=== PATIENT | male | born 1955 | race African-American/Black ===

== ENCOUNTER 2019-03-23 13:34 | Inpatient (IN) ==
[2019-03-23] MEDS ORDERED: TYLENOL PO ONE (13:43)
--- NOTE | 2019-03-23 14:08 | Diag Imaging Result Doc PS360 ---
EXAM: CHEST-2 VIEWS 03/23/2019 HISTORY: fever cough weakness TECHNIQUE: PA and lateral chest COMMENT: There is ill-defined opacity in the posterior medial right lower lobe which was not present on 06/18/2018. There is apparent COPD. IMPRESSION: Right lower lobe pneumonia. Electronically signed by Harvey Larson 03/23/2019 2:06 PM
[2019-03-23 14:09] LABS: BASO# 0.02 X1000 (0.0-0.2); BASO% 0.2 % (0.0-0.8); HEMATOCRIT 38.9 % (42.0-52.0); HEMOGLOBIN 13.2 g/dL (14.0-18.0); IMM GRAN# 0.07 X1000 (0.0-0.04); IMM GRAN% 0.6 % (0.0-0.5); LYMPH# 1.22 X1000 (1.2-3.4); LYMPH% 10.4 % (20.5-51.1); MCH 27.1 PG (27-31); MCHC 33.9 g/dL (33-37); MCV 79.9 FL (81-99); MONO# 1.53 X1000 (0.11-0.59); MONO% 13.1 % (1.7-9.3); NEUT# 8.86 X1000 (1.4-6.5); NEUT% 75.7 % (42.2-75.2); PLT 263 X1000 (130-400); RBC 4.87 XMIL (4.7-6.1); RDW 13.7 % (11.5-14.5)
--- NOTE | 2019-03-23 14:15 | Diag Imaging Result Doc PS360 ---
EXAM: CT HEAD W/O CONTRAST 03/23/2019 HISTORY: weakness hx cva TECHNIQUE: This exam was performed using automated exposure control, adjustment of mA or kV according to patient size, and/or use of iterative reconstruction technique. COMMENT: There is encephalomalacia in the left hemisphere in the parietal convexity and occipital lobe as well as some dystrophic calcification along the atrium of the left lateral ventricle. There are patchy lucencies in the periventricular white matter generally including the right centrum semiovale ovale and subcortical white matter. There are no previous studies available for comparison. The visualized paranasal sinuses are clear. 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 There has been left parietal craniotomy. IMPRESSION: Chronic ischemic and postsurgical changes. No definite evidence of acute disease. Electronically signed by Harvey Larson 03/23/2019 2:13 PM
[2019-03-23] MEDS ORDERED: ROCEPHIN 1 GM in NS 50 ML IV ONE (14:52)
[2019-03-23 15:06] LABS: ALBUMIN 3.9 g/dL (3.5-5.0); CALCIUM 8.8 mg/dL (8.8-10.2); CREATININE 2.5 mg/dL (0.7-1.2); POTASSIUM 3.8 mmol/L (3.5-5.1); TOTAL BILIRUBIN 0.5 mg/dL (0.20-1.00); TOTAL PROTEIN 7.1 g/dL (6.3-8.3)
[2019-03-23 15:31] LABS: BILIRUBIN URINE NEGATIVE (NEGATIVE); BLOOD URINE 3+ (NEGATIVE); KETONE URINE NEGATIVE (NEGATIVE); LEUKOCYTES URINE NEGATIVE (NEGATIVE); NITRITE URINE NEGATIVE (NEGATIVE); PROTEIN URINE 2+(100 mg/dL) mg/dL (NEGATIVE); UROBILINOGEN URINE NORMAL
[2019-03-23 15:32] LABS: CLARITY SL. CLOUDY (CLEAR); COLOR YELLOW
[2019-03-23 15:33] LABS: URINE SOURCE CLEAN CATCH
[2019-03-23] MEDS ORDERED: TYLENOL PO PRN (15:33)
[2019-03-23] MEDS ORDERED: NS 1,000 ML IV ONE (15:38)
[2019-03-23] MEDS ORDERED: APRESOLINE IV PRN (15:39)
[2019-03-23] MEDS: NS 1,000 ML IV SCH (16:35)
[2019-03-23] MEDS: ZITHROMAX 500 MG/NS 500 MG/250 ML IVPB IV SCH (16:35)
[2019-03-23] MEDS: NICODERM PATCH TD SCH (16:35)
--- NOTE | 2019-03-23 18:10 | HISTORY AND PHYSICAL ---
PRIMARY CARE PHYSICIAN: None. CHIEF COMPLAINT: Weakness. HISTORY OF PRESENT ILLNESS: Mr. 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 The patient presented to the ER today, states that he has been very weak and unsteady on his feet, and today he actually fell at home. is at the bedside. She states that the patient has also had decreased appetite for the past few days. The patient is lying in the ER stretcher. He is in no acute distress at the present time. He is able to answer some of my questions appropriately, but the patient seems confused. Family states that, after his CVA 2 years ago, he has had some mild dementia and does have some intermittent confusion. The patient is able to tell me who he is, the month and the day of his birthday, but keeps repeating back the month when I ask him the year of his birthday. The patient is able to move all extremities and has significant strength noted. The patient is very thin in appearance. Fontanelles are sunken. states that usually the patient eats very well; however, over the past few days, he has not been eating very much. Laboratory Findings show white blood cell count 11.70, a sodium of 138, BUN of 137, and a creatinine of 2.5. Chest x-ray shows right lower lobe pneumonia. CT of the head shows chronic ischemic and postsurgical changes, no evidence of acute disease. The patient is denying any pain at this time. He states he does not have a headache. He did not complain of any dizziness. He does complain of a fever, and upon admission to the ER, he had a temperature of 100.8 degrees. The patient states he has had some chills. Denies any dysuria, hematuria, urgency, or frequency. Denies any constipation or diarrhea. The patient states that he is able to take his medications as prescribed and has been taking them. He is not having difficulty swallowing. He does have some peripheral vision loss from his stroke 2 years ago. PAST MEDICAL HISTORY: CVA 2 years ago from embolism, a skull fracture where he hit a shelf and this was 30 years ago, hypertension, GERD, iron deficiency anemia. PAST SURGICAL HISTORY: Surgery to his head from a skull fracture 30 years ago, leg surgery. FAMILY HISTORY: Significant of cancer. SOCIAL HISTORY: Patient lives in [place] with his . states that he does smoke cigars and cigarettes routinely. She does not know quite how much he smokes. states he also does drink alcohol pretty frequently. The patient is unable to answer these questions. states that the patient did use to smoke crack cocaine. She is not sure when the last time was that he smoked this. Subsequently, this is what the stated caused his stroke several years ago. ALLERGIES: No known drug allergies. MEDICATIONS: Amlodipine besylate 10 mg p.o. daily. Vitamin C 500 mg p.o. daily. Clonidine 0.2 mg p.o. daily. Famotidine 20 mg p.o. daily. Folic acid. Multivitamin with iron 1 tablet p.o. daily. Hydrochlorothiazide 25 mg p.o. daily. Iron polysaccharide complex 200 mg p.o. daily. DIAGNOSTIC STUDIES: White blood cell count 11.70, red blood cell count 4.87, hemoglobin 13.2, hematocrit 38.9, MCV 79.9, platelet count 263,000. Sodium is 130, potassium is 3.8, chloride 98, carbon dioxide 24, anion gap is 16, BUN is 37, creatinine is 2.5, GFR is 26, glucose is 126, calcium is 8.8, total bilirubin is 0.5, AST is 70, ALT is 36, alkaline phosphatase 71. Plasma lactate is 1.3. Urinalysis shows 2+ protein, 3+ blood, trace glucose. Chest x-ray shows right lower lobe pneumonia and COPD. Head CT shows chronic ischemic and postsurgical changes. No definite evidence of acute disease. REVIEW OF SYSTEMS: A 10 point review of systems has been obtained. All are negative except what is stated above in HPI. PHYSICAL EXAMINATION: VITAL SIGNS: Temperature 98.3 degrees and initially on arrival to the ER that was 100.8, pulse rate 66, respiratory rate 20, blood pressure is 97/69, O2 saturation is 99% on room air. HEIGHT/WEIGHT: Weight is 124 pounds 8 ounces. Height is 5 feet 11 inches. GENERAL: This is a 63-year-old male. He is lying in the ER stretcher. He is in no acute distress. He is very thin and frail in appearance. He has full strength noted. Fontanelles are sunken. HEENT: Atraumatic, normocephalic. Pupils are equal, round, and reactive to light. There is peripheral field vision loss noted. Mucous membranes are dry. NECK: Supple. No lymphadenopathy. Trachea is midline. No JVD. No thyromegaly. No bruits. CARDIOVASCULAR: Regular rate and rhythm. No murmurs, gallops, or rubs appreciated. RESPIRATORY: Lung sounds are clear with equal chest excursion. Respirations are nonlabored with no accessory muscle usage. GASTROINTESTINAL: Abdomen is flat. It is nontender and nondistended. Bowel sounds are present x4. NEUROLOGIC: The patient is awake and alert. He is able answer a few of my questions; however, he is confused and does not remember his full birthday or where he is or what is going on. He has full strength noted and able to follow all commands. MUSCULOSKELETAL: Full distal strength. The patient is able to follow my commands. There are no abnormalities or deformities. EXTREMITIES: There is no clubbing, no cyanosis. No edema noted. DP and PT pulses are present and palpable. SKIN: Warm, dry, and intact. There are no rashes, bruises or diaphoresis. ASSESSMENT AND PLAN: 1. Pneumonia. We are admitting this patient to the medical floor. We are going to start him on IV antibiotics for his pneumonia. We are going to give him IV fluid hydration. Restart some of his home medications. Provide him with a heart healthy diet. I consulted Physical Therapy to help with ambulation as patient has had some weakness and fell at home. 2. Dehydration. Started this patient on IV fluid hydration of normal saline. We are going to repeat labs in the morning. 3. Acute kidney injury. The patient has elevated creatinine of 2.5 and a BUN of 37. His GFR is 26. When I looked back at a year ago, his creatinine was 1.4, his BUN was 18, and his GFR was greater than 60, so this seems to be an acute event for him. We are going to provide him with some IV fluid hydration. We are going to recheck his labs in the morning to see if we can get some improvement after IV fluid hydration. 4. Hypertension. The patient is on several medications at home for his blood pressure. Right now, his blood pressure is on the low side. This is possibly due to his infection. Blood pressure is 97/69. I have restarted one of his hypertension medicines to be given in the morning. We will hold this if his systolic blood pressure is less than 110. 5. Weakness with fall at home. The patient did have an actual fall at home. states that this is new for him. He did have a stroke over 2 years ago, but he has been able to get around at home, so we have consulted Physical Therapy to help with strengthening. 6. Tobacco abuse: I gave him a nicotine patch and provided smoking cessation information. 7. Alcohol abuse. Not for sure if he does this daily. stated that he is a heavy drinker, but he does not seem to drink daily. We will watch him for withdrawal symptoms, and I am obtaining some labs in the morning. 8. Deep venous thrombosis prophylaxis. I have ordered SCD's. 9. Gastrointestinal prophylaxis. The patient is on Pepcid daily at home. I have reordered this medication. All other further recommendations pending hospital course and lab data. Dictated by ELLEN Olivarez for Pool Moore MD cc: Pool Moore MD MTDD
--- NOTE | 2019-03-23 19:47 | HISTORY AND PHYSICAL ---
ADDENDUM: Patient seen and examined by myself. Full note dictated and discussed with nurse practitioner. The patient presented to the hospital having a febrile illness of undetermined origin. He denies any cough or congestion. Denies headaches. Denies any fevers prior to getting to the ER today. Denies any dysuria. No frequency. Denies constipation, melena or hematochezia. Denies any skin rashes. The patient apparently had a fall at home that was unwitnessed. Head CT was negative. He does have chronic ischemic changes. He does drink, although he states he does not drink every day. Creatinine is elevated at 2.5. His baseline appears to be around 1.4. We are going to admit him to the hospital, place him on antibiotics. Blood culture, urine culture. IV fluids, and recheck his kidney function. cc: Pool Moore MD
[2019-03-23] MEDS ORDERED: HEPARIN SUBQ SCH (21:00)
[2019-03-24] MEDS: NS 1,000 ML IV SCH ×3 (03:07→17:48)
--- NOTE | 2019-03-24 06:52 | Diag Imaging Result Doc PS360 ---
EXAM: CHEST-PORTABLE 03/24/2019 HISTORY: Pneumonia TECHNIQUE: AP portable at 0638 COMMENT: There is opacity in the medial right lower lobe. This is slightly less extensive than on the previous study of 03/23/2019, however the inspiration is less optimal. IMPRESSION: Right lower lobe pneumonia. Electronically signed by Harvey Larson 03/24/2019 6:50 AM
[2019-03-24 06:59] LABS: BASO# 0.02 X1000 (0.0-0.2); BASO% 0.3 % (0.0-0.8); EOS# 0.05 X1000 (0.0-0.7); EOS% 0.6 % (0.0-10.0); HEMATOCRIT 37.2 % (42.0-52.0); HEMOGLOBIN 12.6 g/dL (14.0-18.0); IMM GRAN# 0.03 X1000 (0.0-0.04); IMM GRAN% 0.4 % (0.0-0.5); LYMPH# 0.72 X1000 (1.2-3.4); LYMPH% 9.2 % (20.5-51.1); MCH 27.2 PG (27-31); MCHC 33.9 g/dL (33-37); MCV 80.3 FL (81-99); MONO# 1.03 X1000 (0.11-0.59); MONO% 13.1 % (1.7-9.3); MPV 10.4 FL (7.4-10.4); NEUT# 6.01 X1000 (1.4-6.5); NEUT% 76.4 % (42.2-75.2); PLT 266 X1000 (130-400); RBC 4.63 XMIL (4.7-6.1); RDW 13.8 % (11.5-14.5); WBC 7.86 X1000 (4.8-10.8)
[2019-03-24 07:26] LABS: CALCIUM 8.3 mg/dL (8.8-10.2); POTASSIUM 3.4 mmol/L (3.5-5.1)
[2019-03-24 07:35] LABS: CHOLESTEROL 123 mg/dL (0-200); HDL 41 mg/dL (35-55); LDL 56 mg/dL; PHOSPHORUS 2.9 mg/dL (2.7-4.5); TRIGLYCERIDES 129 mg/dL (39-160); VLDL 26 mg/dL
[2019-03-24 07:53] LABS: TSH 1.2 uIUmL (0.27-4.20)
[2019-03-24] MEDS ORDERED: NORVASC PO SCH (09:00)
[2019-03-24] MEDS: NICODERM PATCH TD SCH (09:33)
[2019-03-24] MEDS: NORVASC PO SCH (09:35)
[2019-03-24] MEDS: FERROUS SULFATE PO SCH (09:35)
[2019-03-24] MEDS: PEPCID PO SCH (09:35)
[2019-03-24] MEDS: THERA M PLUS PO SCH (09:36)
[2019-03-24] MEDS: VITAMIN C PO SCH (09:36)
--- NOTE | 2019-03-24 13:42 | PROGRESS NOTE ---
DATE: 03/24/2019 Delete cc: Pool Moore MD MTDD
--- NOTE | 2019-03-24 13:50 | PROGRESS NOTE ---
DATE: 03/24/2019 SUBJECTIVE: Patient notes he is feeling a lot better. He denies any cough or congestion. He has not really been out of bed. He has had no other lightheaded episodes. Denies any alcohol withdrawal. States his cough is improving and still nonproductive. OBJECTIVE: Temperature 98, pulse 68, respiratory rate 22, BP 121/70. General: The patient is awake, alert, currently in no respiratory distress. Very pleasant. HEENT: Normocephalic. Neck: Supple. Cardiovascular: Regular rate. Chest: Clear. Abdomen: Soft. Extremities: Moves all extremities. Neurologic: No changes. ASSESSMENT: 1. Hyponatremia. 2. Acute on chronic renal failure. Creatinine is improving. It is down from 2.5 to 2.0. He is not quite back to his baseline. We are going to continue his intravenous bag and then hopefully saline lock after that. 3. Volume depletion, improved. 4. Syncope, likely secondary to both pneumonia and volume depletion. He has had no further episodes. 5. Hypertension. Blood pressure is stable. PLAN: We will continue patient in the hospital. Continue treatment. We will monitor for withdrawal. Hopefully, he can discharge home over the next day or two. cc: Pool Moore MD [facility]
--- NOTE | 2019-03-24 14:19 | PROVIDER DOCUMENTATION ---
This chart was entered by Len Schaffer Scribe, acting as scribe for William Khan MD. HPI-General Adult - General Chief Complaint: General Adult Stated Complaint: FEVER Time Seen by Provider: 03/23/19 14:39 Source: patient, family Allergies/Adverse Reactions: Patient Allergies Allergy/AdvReac Type Severity Reaction Status Date / Time No Known Allergies Allergy Verified 03/23/19 14:17 Home Medications: Home Medication List Medication Instructions Recorded Confirmed Last Taken Type Amlodipine Besylate 10 mg PO DAILY 03/23/19 03/23/19 Unknown History Ascorbate Calcium [Vitamin C] 500 mg PO DAILY 03/23/19 03/23/19 Unknown History Clonidine HCl 0.2 mg PO DAILY 03/23/19 03/23/19 Unknown History Famotidine 20 mg PO DAILY 03/23/19 03/23/19 Unknown History Folic Acid/Mv,Fe,Min [One Daily 1 tab PO DAILY 03/23/19 03/23/19 Unknown History Complete Tablet] Hydrochlorothiazide 25 mg PO DAILY 03/23/19 03/23/19 Unknown History Iron Polysaccharide Complex [Ezfe 200 mg PO DAILY 03/23/19 03/23/19 Unknown History 200] - History of Present Illness -Gen Adult Nature of Presenting Problems: 63 yom presents to the ed with a fall that happened this morning, pts family member stated pt fell this morning when going to the bathroom and knocked down the shower curtain, while pts family member was out of the house. after fall pts family member stated he stayed in bed after fall. pt pts family member stated he has loss of appetite. pt states he "has a cough but its not that bad". pt had a stroke 2 years ago and family member states he had a blood clot on his brain , family member says " blood clot is suppose to dissolve " pt is a fluid drinker and smoker stated by family member. Location of Pain/Injury: reports: abdomen (tenderness) Pain Radiation: reports: no radiation Quality of Pain: reports: none Severity: reports: mild Onset/Duration: reports: this morning Timing: reports: still present Context/Activities at Onset: reports: light activity Modifying Factors: improves with: nothing Associated Symptoms: reports: cough (pt says its not that bad). denies: diarrhea, nausea, vomiting Similar Symptoms Previously?: No Recently seen or treated by another doctor?: No Review of Systems - Adult - REVIEW OF SYSTEMS - ADULT Constitutional: reports: weight loss (temporal denotation). denies: chills, fever Eyes: reports: no symptoms reported Ears, Nose, Mouth & Throat: reports: no symptoms reported Cardiovascular: reports: no symptoms reported Respiratory: reports: see HPI, cough. denies: shortness of breath, wheezing Gastrointestinal: denies: diarrhea, nausea, vomiting Genitourinary: reports: no symptoms reported Musculoskeletal: reports: no symptoms reported Integumentary: reports: no symptoms reported Neurological: reports: see HPI, loss of balance (fell this morning). denies: s eizure, syncope Psychiatric: reports: no symptoms reported Endocrine: reports: no symptoms reported Hematologic/Lymphatic: reports: no symptoms reported Allergic/Immunologic: reports: no symptoms reported All Other Systems: Reviewed and Negative Past History - Adult - PAST MEDICAL HISTORY-ADULT Review of Records: reports: Old Records Reviewed, Nursing Assessment Review, Medications Reviewed, Social history reviewed & non-contributory. Major Childhood Illnesses: reports: denies history Cardiovascular: reports: HTN Respiratory: reports: denies history Gastrointestinal: reports: denies history Obstetrical/Gynecological: reports: denies history Genitourinary: reports: denies history Musculoskeletal: reports: denies history Neurological: reports: denies history Endocrine/Immune: reports: denies history Other Conditions: reports: denies history - IMMUNIZATION STATUS Childhood Immunizations: See Nurse Assessment Flu Vaccine: See Nurse Assessment - FAMILY HISTORY Family History: reviewed, not pertinent - SOCIAL HISTORY Smoking: cigarettes Substance Use: alcohol Living Situation: family Physical Exam-General - PHYSICAL EXAM-ADULT Initial Vital Signs Reviewed: Yes - CONSTITUTIONAL General Appearance: alert, no apparent distress, thin - EYES Eyes: PERRL/EOMI, pink conjunctivae - HEAD, EARS, NOSE, MOUTH & THROAT HENMT: moist mucous membranes, dental decay, other (temporal wasting) - NECK Neck: non-tender, full range of motion - RESPIRATORY Respiratory: chest non-tender, lungs clear, normal breath sounds - CARDIOVASCULAR Cardiovascular: normal peripheral pulses, regular rate, rhythm - GASTROINTESTINAL (ABDOMEN) Abdominal Exam: normal bowel sounds, tenderness - LYMPHATIC Lymphatic: no adenopathy - MUSCULOSKELETAL Back Exam: normal inspection, no CVA tenderness Extremity: normal range of motion, non-tender, normal gait - SKIN Integumentary: normal color, normal turgor, warm/dry - NEUROLOGIC Neurologic: grossly normal - PSYCHIATRIC Psych/Mental Status: normal mood/affect, normal thought content, normal thought process, oriented x 3 Progress - PLAN OF CARE/RESULTS Progress/Plan/Lab Results: Vital Signs - 8 hr 03/23/19 13:35 Temperature 100.8 F H Pulse Rate 82 Respiratory Rate 18 Blood Pressure 110/73 O2 Sat by Pulse Oximetry 96 Laboratory Results - last 24 hr 03/23/19 03/23/19 13:50 13:50 WBC 11.70 H RBC 4.87 Hgb 13.2 L Hct 38.9 L MCV 79.9 L MCH 27.1 MCHC 33.9 RDW Std Deviation 13.7 Plt Count 263 MPV 10.0 Immature Gran % (Auto) 0.6 H Neut % (Auto) 75.7 H Lymph % (Auto) 10.4 L Davie % (Auto) 13.1 H Eos % (Auto) 0.0 Baso % (Auto) 0.2 Immature Gran # (Auto) 0.07 H Neut # (Auto) 8.86 H Lymph # (Auto) 1.22 Davie # (Auto) 1.53 H Eos # (Auto) 0.00 Baso # (Auto) 0.02 Estimated GFR/1.73 m2 26 Orders Category Date Time Status CHEST-2 VIEWS [RAD] Stat Exams 03/23/19 13:[address] HEAD W/O CONTRAST [CT] Stat Exams 03/23/19 13:42 Completed BLOOD CULTURE [BLDCUL] Stat Lab 03/23/19 13:50 Ordered CBC WITH DIFF [HEME] Stat Lab 03/23/19 13:50 Completed COMPREHENSIVE METABOLIC PANEL [CHEM] Stat Lab 03/23/19 13:50 Results LACTATE, PLASMA [CHEM] Stat Lab 03/23/19 13:[address] W/POSS RFLX CULT [URINALYSIS] Stat Lab 03/23/19 13:40 Uncollected Acetaminophen [Tylenol] Med 03/23/19 13:43 Discontinued 1,000 mg PO NOW ONE Azithromycin 500 mg/Ns [Zithromax 500 mg/Ns] Med 03/23/19 15:00 Active 500 mg in 250 ml IV Q24H CefTRIAXONE [Rocephin] 1 gm Med 03/23/19 14:52 Active 0.9% Sodium Chloride Inj [Ns] 50 ml IV NOW Transfer/Admit Order [TRANSFER] Routine Transfer 03/23/19 14:49 Ordered Result Diagrams: 03/24/19 05:47 03/24/19 05:47 - XRAY 1 XRAY Study: Chest Impression: See EMR Report ([facility] - [address], [address], [place] [address] [facility] - [address] [place] [address] Department of Imaging Patient: ZANDER [facility]OUGH [facility] Date: 03/23/19MR#: [id number] : 1955DM Status: PRE ERAcct#: [id number] Age/Sex: 63/MRoom/Bed: Loc: P.ED Ordering Physician: William Khan MD Family Physician: Reason for Procedure: fever cough weakness ___ Signed EXAM: CHEST-2 VIEWS 03/23/2019 HISTORY: fever cough weakness TECHNIQUE: PA and lateral chest COMMENT: There is ill-defined opacity in the posterior medial right lower lobe which was not present on 06/18/2018. There is apparent COPD. IMPRESSION: Right lower lobe pneumonia. Electronically signed by Harvey Larson 03/23/2019 2:06 PM 03/23/19 1406 Interpreting Physician: Harvey Larson MD Dictated Date/Time: 03/23/19 1405 cc: William Khan MD;) - CT/MRI 1 CT Study: Head Impression: See EMR Report ([facility] - [address], [address], [place] [address] [address] Department of Imaging Patient: ZANDER K[facility]BROUGH [facility] Date: 03/23/19MR#: [id number] : 1955DM Status: PRE ERAcct#: [id number] Age/Sex: 63/MRoom/Bed: Loc: P.ED Ordering Physician: William Khan MD Family Physician: Reason for Procedure: weakness hx cva Signed EXAM: CT HEAD W/O CONTRAST 03/23/2019 HISTORY: weakness hx cva TECHNIQUE: This exam was performed using automated exposure control, adjustment of mA or kV according to patient size, and/or use of iterative reconstruction technique. COMMENT: There is encephalomalacia in the left hemisphere in the parietal convexity and occipital lobe as well as some dystrophic calcification along the atrium of the left lateral ventricle. There are patchy lucencies in the periventricular white matter generally including the right centrum semiovale ovale and subcortical white matter. There are no previous studies available for comparison. The visua lized paranasal sinuses are clear. 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 There has been left parietal craniotomy. IMPRESSION: Chronic ischemic and postsurgical changes. No definite evidence of acute disease. Electronically signed by Harvey Larson 03/23/2019 2:13 PM 03/23/19 1413 Interpreting Physician: Harvey Larson MD Dictated Date/Time: 03/23/19 1411 cc: William Khan MD;) - CONSULTS/PCP/HOSPITALIST Notification #1 *Consult/PCP/Hospitalist*: Dr. Moore Consult Disposition: Admit Departure - Departure Date of Disposition Decision: 03/23/19 Time of Disposition Decision: 15:30 DIAGNOSIS: Pneumonia, Tobacco use Disposition: ADMITTED INPATIENT 09 Certified Medical Emergency: Emergent Condition: Stable - Critical Care Note This patient required my direct & personal management of CC.: No Attestation - Physician/ MAGDY Attestation Patient care was provided by Advanced Practice Provider:: No The physician spent face to face time with patient:: Yes Advanced Practice Provider documentation review:: Supervising physician onsite and consulted in the evaluation and care of this patient. The physician did have a face to face encounter with the patient. This chart was documented by the indicated scribe, (Len Schaffer, Shae) and accurately reflects the services I performed and decisions made by me, William Troncoso MD, as attested by the provider's signature.
[2019-03-24] MEDS ORDERED: ROCEPHIN 1 GM in NS 50 ML IV SCH (15:00)
[2019-03-24] MEDS: ZITHROMAX 500 MG/NS 500 MG/250 ML IVPB IV SCH (16:31)
[2019-03-24] MEDS ORDERED: KLOR-CON PO ONE (17:07)
[2019-03-24] MEDS ORDERED: NS + KCL 20 MEQ 1,000 ML IV SCH (17:15)
[2019-03-25] MEDS: NS 1,000 ML IV SCH (03:01)
[2019-03-25] MEDS ORDERED: ZITHROMAX PO SCH (09:00)
[2019-03-25] MEDS ORDERED: OMNICEF PO SCH (09:00)
[2019-03-25] MEDS: NORVASC PO SCH (10:30)
[2019-03-25] MEDS: VITAMIN C PO SCH (10:31)
[2019-03-25] MEDS: THERA M PLUS PO SCH (10:31)
[2019-03-25] MEDS: FERROUS SULFATE PO SCH (10:31)
[2019-03-25] MEDS: PEPCID PO SCH (10:31)
[2019-03-25] MEDS: NICODERM PATCH TD SCH (10:32)
[2019-03-25 11:25] VITALS: BP 127/72
--- NOTE | 2019-03-25 17:39 | DISCHARGE SUMMARY ---
ADMISSION DATE: 03/23/2019 DISCHARGE DATE: 03/25/2019 PRIMARY CARE PHYSICIAN: None. ADMISSION DIAGNOSIS: 1. Pneumonia. 2. Dehydration. 3. Acute kidney injury. 4. Hypertension. 5. Weakness with a fall at home. 6. Tobacco abuse. 7. Alcohol abuse. DISCHARGE DIAGNOSIS: 1. Right lower lobe pneumonia. 2. Hyponatremia improved. 3. Acute kidney injury improved. 4. Dehydration resolved. 5. Hypertension. 6. Weakness with fall at home improved. 7. Tobacco abuse. 8. Alcohol abuse. SUMMARY OF FINDINGS: This is a 63-year-old male who presented to the ER stating he had been very weak and unsteady on his feet and actually had a fall at home. Has had a decreased appetite over the past several days, was able to answer questions appropriately but seemed confused at times. His chest x-ray showed a right lower lobe pneumonia. He was found to have a BUN of 37 with a creatinine of 2.5, sodium was 130 so he was admitted, placed on IV hydration, IV antibiotics. He improved. His kidney function today went from 2.5 to 2. States he is feeling much better and attending felt that he can safely be discharged home as his white count has also gone from 11.70 on 03/23 to 7.86 on 03/24, he has remained afebrile for greater than 24 hours and it is felt that he can safely be discharged home. DISCHARGE MEDICATIONS: Include Norvasc 10 mg p.o. daily, vitamin C 500 mg p.o. daily, Zithromax 250 mg p.o. daily #4 with no refills, Omnicef 300 mg p.o. b.i.d. #14 with no refills, clonidine 0.2 mg p.o. daily, famotidine 20 mg p.o. daily, one daily complete tablet 1 tablet p.o. daily, hydrochlorothiazide 25 mg p.o. daily and iron complex 200 mg p.o. daily. FOLLOWUP: He will need to obtain a primary care physician. Will give him the physician referral line. TIME SPENT: 35 minutes. Dictated by ELLEN Cortez for Pool Moore MD cc: ELLEN Cortez MD
--- NOTE | 2019-03-25 19:11 | DISCHARGE SUMMARY ---
ADMISSION DATE: 03/23/2019 DISCHARGE DATE: 03/25/2019 Patient seen and examined by myself. Full note dictated and discussed with nurse practitioner. Patient presented to the hospital, subsequently diagnosed with right lower lobe pneumonia as well as volume depletion. His creatinine has improved. He is ambulating without any difficulty and therefore he will be discharged home. cc: Pool Moore MD
== END 2019-03-25 15:30 | disposition home or self-care (01) | DRG 194 ==
LOC: P.ED 13:34 → P.MEDSURG 15:26
PROVIDERS: ATTEND Family Medicine